=== PATIENT | female | born 1965 | race Caucasian/White ===

== ENCOUNTER 2020-07-22 09:44 | Emergency (ER) | payer BC, SELFPAY ==
--- NOTE | ~2020-07-22 | XR_ITS ---
EXAMINATION: XR foot LT min 3V DATE: 07/22/2020 10:15 INDICATION: Left foot pain and swelling TECHNIQUE: Dorsoplantar, lateral, and 2 oblique views of the left foot were obtained. COMPARISON: None. FINDINGS: No acute fracture is identified. There appears to be an old healed fracture of the fourth m etatarsal. 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 There is soft tissue swelling surrounding the distal first metatarsal. IMPRESSION: 1. Soft tissue swelling surrounding the first metatarsal without evidence of acute osseous abnormalit y. Reviewed, dictated and finalized at location A. [facility] IMPRESSION: 1. Soft tissue swelling surrounding the first metatarsal without evidence of ac stacie osseous abnormality.
--- NOTE | 2020-07-22 09:47 | ED.LOWEXIN ---
HPI - Extremity Injury (Lower) General Chief Complaint: Extremity Injury, Lower Stated Complaint: left foot pain Time Seen by Provider: 07/22/20 09:47 Source: patient and RN notes reviewed History of Present Illness HPI Narrative: Patient is a 55-year-old female who presents the urgent care with complaints of left foot pain. Patient states that it happened yesterday while she was walking outside. Patient states that she has not been wearing new shoes and denies of any known trauma or fall. Patient states that pain is increased with ambulation or weightbearing. Patient states that she has used Advil for the pain. No other acute complaints. No acute distress noted. Patient aware of the plan of care. Some parts of this dictation were generated by voice recognition software and may contain typographical and/or grammatical inaccuracies. Related Data Home Medications Medication Instructions Recorded Confirmed albuterol sulfate 2 puff INHALATION Q4H PRN 07/22/20 07/22/20 famotidine 20 mg PO BID 07/22/20 07/22/20 fluoxetine 20 mg PO DAILY 07/22/20 07/22/20 lamotrigine 150 mg PO DAILY 07/22/20 07/22/20 rosuvastatin 40 mg PO DAILY 07/22/20 07/22/20 Allergies Allergy/AdvReac Type Severity Reaction Status Date / Time No Known Allergies Allergy Verified 07/22/20 10:08 Review of Systems Review of Systems: Narrative: CONSTITUTIONAL: Denies fever, chills, or sweats. EYES: Denies visual changes, redness, or discharge. ENT: Denies rhinorrhea, congestion, sore throat, or otalgia. CARDIOVASCULAR: Denies chest pain, palpitations, or edema. RESPIRATORY: Denies cough or dyspnea. GASTROINTESTINAL: Denies abdominal pain, nausea, vomiting, or diarrhea. GENITOURINARY: Denies dysuria or hematuria. SKIN: Denies rash or itching. MUSCULOSKELETAL: Reports of left foot pain NEUROLOGIC: Denies headache, numbness, or weakness. All other systems reviewed are negative, except as documented in HPI. PMFSH Comments At the time of my signature, I reviewed and agree with the nursing past medical, surgical, social, and family history. There is no relevant family history pertinent to the patient complaint. Exam Narrative: Exam Narrative: GENERAL: This is a well-nourished, well-developed patient, in no apparent distress. HEAD: normocephalic, atraumatic. EYES: PERRL. Sclera clear/white. Vision is grossly intact. EARS: External ears normal NOSE: External nose normal with no obvious nasal discharge, nares without redness, no rhinorrhea. THROAT: Mucous membranes moist NECK: Neck supple SKIN: warm, intact with no suspicious lesions or rash, good texture and turgor. NEURO: awake, alert, and oriented to person, place and time. There were no obvious focal neurologic abnormalities. EXTREMITIES: Very mild 3 x 3 area of erythema noted to the dorsal lateral aspect of the left foot without any obvious edema, deformity, ecchymosis. Positive strong left pedal pulse with capillary refill less than 2 seconds. Range of motion within normal limits Course Vital Signs Vital signs: Vital Signs Temperature 98.6 F 07/22/20 09:54 Pulse Rate 80 07/22/20 09:54 Respiratory Rate 16 07/22/20 09:54 Blood Pressure 147/85 H 07/22/20 09:54 Pulse Oximetry 97 07/22/20 09:54 Temperature 98.6 F 07/22/20 09:54 Pulse Rate 80 07/22/20 09:54 Respiratory Rate 16 07/22/20 09:54 Blood Pressure 147/85 H 07/22/20 09:54 Pulse Oximetry 97 07/22/20 09:54 Reviewed?patient is informed that they may have pre-hypertension or hypertension based on a blood pressure reading in the department. I recommend the patient call the primary care provider listed on their discharge instructions or a physician of their choice this week to arrange follow-up for further evaluation of possible pre-hypertension or hypertension. MDM - Extremity Injury (Lower) MDM Narrative Medical decision making narrative: Reviewed x-ray results with the patient. She is aware that x-ray was negative
[2020-07-22 09:54] VITALS: BP 147/85; PULSE 80; RESP 16; TEMP 37; O2SAT 97
== END 2020-07-22 10:30 | disposition home or self-care (01) ==
PROVIDERS: Emergency Provider Nurse Practitioner Family; PCP Internal Medicine Geriatric Medicine
DX: M19.072 Primary osteoarthritis, left ankle and foot (principal); E78.00 Pure hypercholesterolemia, unspecified; I10 Essential (primary) hypertension; K21.9 Gastro-esophageal reflux disease without esophagitis; F41.9 Anxiety disorder, unspecified; F32.9 Major depressive disorder, single episode, unspecified
CPT/HCPCS: 73630; 99213; G0463